=== PATIENT | male | born 1960 | race Caucasian/White ===

== ENCOUNTER 2021-05-06 10:52 | Emergency (ER) | payer SELFPAY ==
[~2021-05-06] VITALS: Ht 182.9 cm; Wt 111.4 kg
[2021-05-06 11:00] VITALS: TEMP 98.5
[2021-05-06 12:48] LABS: TRICYCLIC ANTIDEPRESS URINE NEGATIVE
[2021-05-06] MEDS ORDERED: CEPHALEXIN500 M1 PO ×2 (13:03→15:10)
[2021-05-06 13:10] VITALS: BP 125/86; PULSE 80
[2021-05-06] MEDS ORDERED: PERCOCET 325 MG1 TA2 PO (13:38)
== END 2021-05-06 13:21 | disposition home or self-care (01) ==
LOC: COL.ER 10:52
PROVIDERS: Physician Assistant
DX: S61.203A Unspecified open wound of left middle finger without damage to nail, initial encounter (principal); Z86.16 Personal history of COVID-19; Z88.0 Allergy status to penicillin; W20.8XXA Other cause of strike by thrown, projected or falling object, initial encounter; Y99.0 Civilian activity done for income or pay